=== PATIENT | female | born 1960 | race Caucasian/White ===

== ENCOUNTER 2022-01-01 13:05 | Outpatient (CLI) | payer OTHER, SELFPAY ==
--- NOTE | 2022-01-01 13:19 | MM_ITS ---
WS: [id number] BILATERAL 3D TOMOSYNTHESIS DIGITAL SCREENING MAMMOGRAPHY WITH CAD CLINICAL INFORMATION: SCREENING HISTORY: Screening mammogram. Breast soreness COMPARISON: TECHNIQUE: Bilateral CC and MLO views. FINDINGS: Scattered fibroglandular densities bilaterally. Punctate and dystrophic calcifications are stable. No suspicious focal mass, asymmetry, calcifications, or architectural distortion. No evidence of malign surinder. MM/[place] [id number] IMPRESSION: BI-RADS: 2-Benign FOLLOW UP: 1 Year Follow-up Recommend return to annual screening mammography.
== END 2022-01-01 13:06 | disposition home or self-care (01) ==
LOC: RAD 13:08
PROVIDERS: PCP Internal Medicine; Visit Provider Internal Medicine
DX: Z12.31 Encounter for screening mammogram for malignant neoplasm of breast (principal)
CPT/HCPCS: 77063; 77067

== ENCOUNTER 2023-10-12 09:51 | Outpatient (CLI) | payer OTHER, SELFPAY ==
--- NOTE | 2023-10-12 09:58 | XR_ITS ---
WS: [id number] XR chest 2V* [id number] REASON FOR EXAM: CHEST WALL ANTERIOR PAIN/COUGH FINDINGS: Moderate tortuosity and ectasia of the thoracic aorta. Heart at the upper limits of normal. Presumed large calcified azygos lymph node. Additional calcified granulomas disease in both hilar and perihila r regions. No acute pulmonary parenchymal or pleural abnormality. Mild dextroscoliosis of the thoracic spine with moderate degenerative spondylosis in the lower thorac ic spine. XR/XR chest 2V* [id number] IMPRESSION: No acute chest abnormality.
== END 2023-10-12 09:52 | disposition home or self-care (01) ==
LOC: RAD 09:53
PROVIDERS: PCP Internal Medicine; Visit Provider Nurse Practitioner Family
DX: R07.89 Other chest pain (principal); R05.8 Other specified cough; I77.810 Thoracic aortic ectasia; I89.8 Other specified noninfective disorders of lymphatic vessels and lymph nodes; M41.84 Other forms of scoliosis, thoracic region; M47.814 Spondylosis without myelopathy or radiculopathy, thoracic region
CPT/HCPCS: 71046

== ENCOUNTER 2024-06-08 20:13 | Observation (INO) | payer OTHER, SELFPAY ==
[2024-06-08 20:18] VITALS: BP 228/103; PULSE 99; RESP 18; TEMP 35.7; O2SAT 98; BMI 35.5
--- NOTE | 2024-06-08 20:26 | CTR_ITS ---
PROCEDURE INFORMATION: Exam: CT Head Without Contrast Exam date and time: 06/08/2024 8:38 PM Age: 64 years old Clinical indication: Stroke-like symptoms; Other: Right sided weakness numbness/paresthesia; Additional info: Symptoms of acute stroke TECHNIQUE: Imaging protocol: Computed tomography of the head without contrast. Radiation optimization: All CT scans at this facility use at least one of these dose optimization techniques: automated exposure control; mA and/or kV adjustment per patient size (includes targeted exams where dose is matched to clinical indication); or iterative reconstruction. Other technique: STROKE PROTOCOL was implemented. COMPARISON: No relevant prior studies available. RADIATION DOSE METRICS: Total DLP (mGy-cm): 1075.48 FINDINGS: Brain: No acute infarct. No hemorrhage. Unremarkable white matter for age. No midline shift. Cerebral ventricles: No ventriculomegaly. Paranasal sinuses: There are frothy secretions in the left sphenoid sinus without air-fluid level. Probable bone island in the sphenoid body measuring 8 mm. Mastoid air cells: No significant inflammation. Bones: See Paranasal sinuses finding. Soft tissues: Unremarkable. CT/CT head thrombolytic [id number] IMPRESSION: No acute intracranial abnormality. ASSESSMENT: ASPECTS ([place] Stroke Program Early CT Score) is 10.
--- NOTE | 2024-06-08 20:26 | CTR_ITS ---
PROCEDURE INFORMATION: Exam: CTA Head With Contrast, Arteriography Exam date and time: 06/08/2024 8:46 PM Age: 64 years old Clinical indication: Stroke-like symptoms; Dizziness/giddiness and other: Gait instability; Additional info: Multiple episodes of dizziness with gait instability through out the day. Last known well time of 0930 hours. TECHNIQUE: Imaging protocol: Computed tomographic angiography of the head with contrast. Exam focused on the arteries. 3D rendering (Not supervised by radiologist): MIP and/or 3D reconstructed images were created by the technologist. Radiation optimization: All CT scans at this facility use at least one of these dose optimization techniques: automated exposure control; mA and/or kV adjustment per patient size (includes targeted exams where dose is matched to clinical indication); or iterative reconstruction. Contrast material: OMNI 350; Contrast volume: 100 ml; Contrast route: INTRAVENOUS (IV); COMPARISON: CT head thrombolytic [id number] 06/08/2024 8:38 PM RADIATION DOSE METRICS: Total DLP (mGy-cm): 435.37 FINDINGS: ANTERIOR CIRCULATION: Right internal carotid artery: Intracranial segment is patent with no significant stenosis. No aneurysm. Right middle cerebral artery: No occlusion or significant stenosis. No aneurysm. Right anterior cerebral artery: No occlusion or significant stenosis. No aneurysm. Left internal carotid artery: Intracranial segment is patent with no significant stenosis. No aneurysm. Left middle cerebral artery: No occlusion or significant stenosis. No aneurysm. Left anterior cerebral artery: No occlusion or significant stenosis. No aneurysm. POSTERIOR CIRCULATION: Right vertebral artery: No occlusion or significant stenosis. No aneurysm. Left vertebral artery: No occlusion or significant stenosis. No aneurysm. Basilar artery: No occlusion or significant stenosis. No aneurysm. Right posterior cerebral artery: The right [employer]ION[employer] OFFICE COORDINATOR has mild stenosis in the P1 segment. Left posterior cerebral artery: There is moderate stenosis of the left REGIONAL OFFICE COORDINATOR in the P1 segment. Brain: No definite mass, mass effect, or midline shift. Cerebral ventricles: No ventriculomegaly. Salivary glands: Possible left submandibular duct stone measuring 5 mm. Bones/joints: No acute fracture. Soft tissues: Unremarkable. PROCEDURE INFORMATION: Exam: CTA Neck With Contrast Exam date and time: 06/08/2024 8:46 PM Age: 64 years old Clinical indication: Stroke-like symptoms; Dizziness/giddiness and other: Gait instability; Additional info: Multiple episodes of dizziness with gait instability through out the day. Last known well time of 0930 hours. TECHNIQUE: Imaging protocol: Computed tomographic angiography of the neck with contrast. Exam focused on the cervical segments of the vasculature. 3D rendering (Not supervised by radiologist): MIP and/or 3D reconstructed images were created by the technologist. Radiation optimization: All CT scans at this facility use at least one of these dose optimization techniques: automated exposure control; mA and/or kV adjustment per patient size (includes targeted exams where dose is matched to clinical indication); or iterative reconstruction. Contrast material: OMNI 350; Contrast volume: 100 ml; Contrast route: INTRAVENOUS (IV); COMPARISON: CT head thrombolytic [id number] 06/08/2024 8:38 PM RADIATION DOSE METRICS: Total DLP (mGy-cm): 435.37 FINDINGS: Right common carotid artery: No stenosis. No dissection or occlusion. Right internal carotid artery: No stenosis of the extracranial segment. No dissection or occlusion. Right external carotid artery: No visible occlusion. Left common carotid artery: No stenosis. No dissection or occlusion. Left internal carotid artery: No stenosis of the extracranial segment. No dissection or occlusion. Left external carotid artery: No visible occlusion. Right vertebral artery: No stenosis. No dissection or occlusion. Left vertebral artery: No stenosis. No dissection or occlusion. Thyroid: Heterogeneous thyroid with calcified nodule in the left measuring 8 mm. Soft tissues: No significant soft tissue swelling. Bones/joints: Multilevel spinal degenerative changes. CT/CT angio headneck* [id number] IMPRESSION: No acute large vessel occlusion identified. IMPRESSION: No occlusion or significant stenosis. COMMENTS: Consistent with the [employer]'s Incidental Findings Committee white paper (J Am Danial Radiol 2015): In patients aged 35 years and older with an incidental thyroid nodule equal to or greater than 1.[address], MRI or extrathyroidal US, further evaluation with dedicated thyroid US is recommended for patients with normal life expectancy and without comorbidities. For smaller nodules without suspicious features, no further evaluation or follow up is recommended. REFERENCES: NASCET CRITERIA. The degree of stenosis in the cervical segment of the internal carotid artery is based on NASCET criteria. Normal is no stenosis. Mild is less than 50% stenosis. Moderate is 50-69% stenosis. Severe is 70% to 99% stenosis. Total occlusion is no detectable patent lumen.
--- NOTE | 2024-06-08 20:26 | ECG_ITS ---
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 Measurements Intervals Almond Rate: 85 P: 60 WY: 146 QRS: -17 QRSD: 101 T: 63 QT: 399 QTc: 476 Interpretive Statements SINUS RHYTHM Compared to ECG 07/10/2016 09:01:35 No significant changes Electronically Signed On 06-10-2024 07:43:08 CDT by Luis Alberto Bobby M.D. [email or web address]
[2024-06-08 20:27] LABS: Glucose Point of Care 333 mg/dL (70-110)
[2024-06-08] MEDS: iohexol 350 mg/mL 500 mL Btl (per mL) IV (20:53)
[2024-06-08 21:00] LABS: Basophils % 0.5 %; Eosinophils # 0.1 10^3/uL (0.0-0.8); Eosinophils % 2.5 %; Hematocrit 40.5 % (36-47); Lymphocytes # 1.6 10^3/uL (0.8-4.8); Lymphocytes % 28.2 %; Mean Corpuscular HGB Conc 32.6 g/dL (30-55); Mean Corpuscular Hemoglobin 28.8 pg (27-33); Mean Corpuscular Volume 88.2 fl (85-98); Mean Platelet Volume 11.1 fL (7.4-10.4); Monocytes # 0.5 10^3/uL (0.2-0.9); Neutrophils % 60.6 %; Nucleated Red Blood Cells % 0 %; Platelet Count 161 10^3/cmm (157-399); Red Blood Count 4.59 10^6/uL (3.85-5.65); Red Cell Distribution Width 13.1 % (12.1-15.1); White Blood Count 5.61 10^3/uL (3.29-11.43)
[2024-06-08] MEDS: labetalol 5 mg/mL SDV 20mL 10 MG IVP (21:01)
[2024-06-08] MEDS: sodium chloride 0.9% 1,000 ML 999 ML IV (21:01)
[2024-06-08 21:13] LABS: INR 0.85 (0.8-1.2); Partial Thromboplastin Time 28.7 SECONDS (23.9-36.7)
[2024-06-08 21:21] LABS: Alanine Aminotransferase 22 U/L (0-33); Alkaline Phosphatase 115 U/L (35-105); Anion Gap 17.1 (5-19); Aspartate Amino Transferase 25 U/L (0-32); Blood Urea Nitrogen 24 mg/dL (8-23); Calcium 9.4 mg/dL (8.5-10.5); Carbon Dioxide 24 mmol/L (22-29); Chloride 102 mmol/L (98-107); Creatinine Clr Calc Pharmacy 67.7367; Globulin 3.3 g/dL (1.3-4.6); Glomerular Filtration Rate 55.8 mL/min (90-130); Glucose 342 mg/dL (65-115); Osmolality Calculated 306 mOsm/kg (285-295); Potassium 4.1 mmol/L (3.5-5.1); Sodium 139 mmol/L (136-145); Total Bilirubin 0.5 mg/dL (0.15-1.2); Total Protein 7.3 g/dL (6.6-8.7)
[2024-06-08 21:26] LABS: Alcohol Level < 10 mg/dL (0-10)
[2024-06-08 22:10] LABS: Amphetamines Screen Urine Negative (Negative); Barbiturates Screen Urine Negative (Negative); Benzodiazepines Screen Urine Negative (Negative); Cocaine Screen Urine Negative (Negative); Opiate Screen Urine Negative (Negative); PCP Screen Urine Negative (Negative); THC Screen Urine Negative (Negative)
[2024-06-08] MEDS: LORazepam 2 mg/mL INJ 1 mL 0.5 MG IVP (22:10)
[2024-06-08 22:11] LABS: Bacteria Urine None Seen /hpf; Squamous Epithelial Cell Urine 0-5 /hpf (0-5); WBC Urine 0-5 /hpf (0-5)
[2024-06-08 22:18] LABS: Add Urine Microscopic? YES; Bilirubin Urine Negative (Negative); Blood Urine Trace (Negative); Glucose Urine UA 2+ (Normal); Ketones Urine Negative (Negative); Leukocyte Esterase Urine Negative (Negative); Nitrate Urine Negative (Negative); Protein Urine 1+ (Negative); Specific Gravity, Urine 1.028 (1.005-1.030); Urine Appearance Clear (CLEAR); Urine Color Yellow (Yellow); Urobilinogen Urine 0.2 mg/dL (Negative); pH Urine 7.5 (5-7)
[2024-06-08 22:38] LABS: Influenza A NEGATIVE (Negative); Influenza B NEGATIVE (Negative); Respiratory Syncytial Virus Ce NEGATIVE (Negative); SARS-CoV-2 PCR NEGATIVE (Negative)
--- NOTE | 2024-06-08 23:23 | P.HP_ITS ---
Providers/Chief Complaint 2 Chief Complaint: sudden dizzy this am. 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 brought her in. Code stroke was called, she was out of TNKase window she did not have any stroke related features. She was dizzy with some ataxia. CT head, CTA head and neck unremarkable. At the time of evaluation patient is hemodynamically stable, complaining of nausea. Patient is stating that she had couple of episode of vomiting today as well with chest pain. Patient is stating that she has been experiencing chest pain for last few weeks which would last sometimes for an hour, it would radiate towards her arms bilaterally associated with shortness of breath on exertion. No history of MA CHF or coronary disease. As per the ER: Lazaro's maneuver was negative Review of Systems 2 Const: Denies: fever(s) Eyes: Denies: change in vision ENMT: Denies: throat pain Card: Reports: chest pain Resp: Reports: dyspnea GI: Reports: nausea and vomiting Medications/Allergies Home Medications ?Medication ?Instructions ?Recorded ?Confirmed ?Last Taken ?Type glipizide 5 mg tablet 5 mg PO BID 07/25/22 4 Unknown History levothyroxine 88 mcg capsule 88 mcg PO DAILY 07/25/22 03/11/24 Unknown History metoprolol tartrate 50 mg tablet 50 mg PO BID 07/25/22 03/11/24 Unknown History losartan 50 mg tablet 50 mg PO DAILY #30 tabs 02/2003/11/24 Unknown Rx metformin 1,000 mg tablet 1,000 mg PO BID #120 tabs Unknown Rx Allergies Allergy/AdvReac Type Severity Reaction Status Date / Time No Known Allergies Allergy Verified 06/08/24 20:19 PFSH Acute 2 PFSH: Medical History Poorly controlled diabetes mellitus Social History Smoking and tobacco/nicotine status: never used tobacco/nicotine Vitals/I&O/Wt Last Vital Signs Temp 96.3 F L 06/08/24 20:18 Pulse 99 06/08/24 20:18 Resp 18 06/08/24 20:18 BP 228/103 06/08/24 20:18 Pulse Ox 98 06/08/24 20:18 O2 Del Method Room Air 06/08/24 20:18 06/08/24 06/08/24 06/09/24 14:59 22:59 06:59 Intake Total 0 / 0 Balance 0 / 0 Weight last 48 hrs Weight 99.79 kg Physical Exam 2 Narrative: Awake and alert GCS 15 No active focal deficit Complaining of dizziness Dizziness on changing head position Mild ataxia No active focal deficit noted S1, S2 Hypertensive Currently on room air Awake and alert AOx4 Abdomen nondistended Data 06/08/24 20:50 06/08/24 20:50 A&P Assessment and plan (1) Hypertension: (2) Poorly controlled diabetes mellitus: (3) CVA (cerebral vascular accident): Qualifiers: CVA mechanism: other Qualified Code(s): I63.89 - Other cerebral infarction (4) Balance problem: (5) Unstable angina: Plan Dizziness Patient describes dizziness as lightheadedness Lazaro's maneuver negative Rule out stroke CTA head and neck CT head unremarkable Will request head MRI Patient is aware that she has to remove her nose pain Will start aspirin along atorvastatin Check B12, TSH Ataxia could be related to poorly controlled diabetes and peripheral neuropathy Unstable angina: Patient has been experiencing chest pain with exertion: Requested echo, serial troponin with EKG Continue aspirin with statins Patient is endorsing family history of MA, father age 57 secondary to MA No active chest pain Request D-dimer as well Poorly controlled diabetic: Patient only takes oral antihyperglycemic agent, her A1c is around 9.7 if she will need insulin at the time of discharge Start sliding scale and Lantus Restless leg syndrome: Check iron studies Hypertension: Permissive hypertension for now: Takes losartan at home Full code Consistent carb diet DVT prophylaxis heparin Requested telemetry PDMP PDMP Reviewed: Not Reviewed Attestations 2 Medical Necessity Statement*: Anticipating discharge within 24 to 48 hours after workup for CVA Diagnoses Hypertension I10 Poorly controlled diabetes mellitus E11.65 CVA (cerebral vascular accident) I63.89 CVA mechanism: other Balance problem R26.89 Unstable angina I20.0
--- NOTE | 2024-06-08 23:34 | ED_ITS ---
HPI - Neuro Symptoms/Deficit 2 General: Chief Complaint: Neuro Symptoms/Deficit Stated Complaint: sudden dizzy this am. all day right side weak Time Seen by Provider: 06/08/24 20:18 Source: patient and family Mode of arrival: wheelchair Limitations: no limitations History of Present Illness: Reports around 930 this morning 70 beats are becoming dizzy. Patient declines to be room spinning but also declines after being lightheaded. Just reports that her balance is off. She feels like she is walking like a toddler. It has been all day and she feels like she is a little more weak on the right side though on bedside exam it was fairly equal. Nonetheless there was concern for possible CVA so stroke alert was performed and CTA was done. Patient declines any fever. Has had some nausea. Did vomit once here in the ER. Related Data Home Medications ?Medication ?Instructions ?Recorded ?Confirmed glipizide 5 mg tablet 5 mg PO BID 07/25/22 4 levothyroxine 88 mcg capsule 88 mcg PO DAILY 07/25/22 03/11/24 metoprolol tartrate 50 mg tablet 50 mg PO BID 07/25/22 03/11/24 Previous Rx's ?Medication ?Instructions ?Recorded losartan 50 mg tablet 50 mg PO DAILY #30 tabs 02/20 04/14 metformin 1,000 mg tablet 1,000 mg PO BID #120 tabs Allergies Allergy/AdvReac Type Severity Reaction Status Date / Time No Known Allergies Allergy Verified 06/08/24 20:19 Review of Systems 2 General: Reports: 10 or more systems reviewed and unremarkable except in HPI and below PFSH ED 2 PFSH: Medical History Poorly controlled diabetes mellitus Social History Smoking and tobacco/nicotine status: never used tobacco/nicotine NIH stroke score 2 NIHSS: Level Of Consciousness - 1a: 0 Level Of Consciousness Questions - 1b: Both Correct Level Of Consciousness Commands - 1c: Both Correct Best Gaze - 2: Normal Visual Perez - 3: No Visual Loss Facial Palsy - 4: N ormal Motor Arm Right - 5: No Drift Motor Arm Left - 5: No Drift Motor Leg Right - 6: No Drift Motor Leg Left - 6: No Drift Limb Ataxia - 7: P resent In One Limb (Right leg) Sensory - 8: Normal Best Language - 9: No Aphasia Dysarthia - 10: Normal Extinction And Inattention - 11: 0 Score: Total Score: 1 Physical Exam 2 Const: COMMON NORMALS: no acute distress, average body habitus, patient oriented x3, healthy appearing, alert and well nourished GENERAL APPEARANCE: well kempt and well developed ORIENTATION/CONSCIOUSNESS: Yes oriented to person, Yes oriented to place and Yes oriented to time HENMT: COMMON NORMALS: normocephalic, atraumatic, external ears normal and moist oral mucous membranes HEAD & SCALP: normocephalic and atraumatic E XTERNAL EAR: Yes external ears normal Eye: COMMON NORMALS: Equal, round and reactive pupils present, EOMs intact bilaterally and conjunctivae normal CONJUNCTIVA: Yes conjunctivae normal P UPIL: Yes Equal, round and reactive pupils present Neck/C-Spine: COMMON NORMALS: full ROM, no lymphadenopathy and supple Chest: CHEST: Yes Symmetrical chest wall rise and No Surgical scars present (Chest) Resp: COMMON NORMALS: normal respiratory effort, No retractions, No use of accessory muscles and clear to auscultation bilaterally AUSCULTATION: clear to auscultation bilaterally Cardio: COMMON NORMALS: regular rhythm, S1 normal heart sound present, S2 normal heart sound present, No gallops present (Cardio), No clicks present (Cardio), No murmurs present (Cardio) and No rub (Cardio) JUGULAR VENOUS DISTENTION: no JVD RATE: tachycardic RHYTHM: regular rhythm HEART SOUNDS: S1 normal heart sound present, S2 normal heart sound present and no murmurs PERIPHERAL PULSES: other (Radial pulses 2+ and symmetric) GI: COMMON NORMALS: Soft to palpation, non-tender and no masses INSPECTION: No abdominal distension PALPATION: Yes Soft to palpation, No Guarding due to palpation present (GI) and No Rebound tenderness present : COMMON NORMALS: Yes no CVA tenderness BLADDER/KIDNEY EXAM: Yes no CVA tenderness Back/Pelvis: COMMON NORMALS: no CVA tenderness Extremity: COMMON NORMALS: normal to inspection, full ROM, capillary refill normal and no clubbing, cyanosis or edema Neuro: COMMON NORMALS: patient oriented x3, CN's II-XII intact bilaterally, moves all extremities, no focal motor deficits and no sensory deficits noted; negative for gait normal SENSORIUM/ORIENTATION: Yes alert, Yes oriented to person, Yes oriented to place and Yes oriented to time GAIT: Yes Staggering gait present Psych: APPEARANCE: Yes well kempt Skin: COMMON NORMALS: no rashes or lesions noted, no wounds, turgor normal and no jaundice GENERAL SKIN EXAM: no rashes or lesions noted and turgor normal Course 2 Reevaluation(s): Reevaluation #1: On reexamination. Patient has now thrown up once and is complaining of restless legs. Restless legs are chronic. She is not treated with any medications. She is unaware if they have ever checked her iron levels. Vital Signs: Vital signs: Vital Signs Temperature 96.3 F L 06/08/24 20:18 Pulse Rate 99 06/08/24 20:18 Respiratory Rate 18 06/08/24 20:18 Blood Pressure 228/103 06/08/24 20:18 Pulse Oximetry 98 06/08/24 20:18 Oxygen Delivery Me thod Room Air 06/08/24 20:18 MDM - Neuro Symptoms/Deficit Medical Decision Making Patient having Diffley bouncing, [address] are unremarkable including CTA. Personally reviewed and verified by radiology. Discussed the case with Dr. Vidal earlier in the shift. Unsure if patient is anxious but along to the bathroom she is only has a stumbling gait and appears to have balance issues. Denies any weakness. Patient will be admitted to the hospital for potential CVA. Blood pressure and heart rate has improved with treatments. Flu COVID RSV negative. Ears unremarkable. Patient still somewhat ataxic or off balance. Will admit to the hospitalist, neurology consult in AM. Medical Records I reviewed the patient's medical records. Lab Data I reviewed the patient's lab results. 06/08/24 20:50 06/08/24 20:[address] 06/08/24:26 IMPRESSION: No acute intracranial abnormality. ASSESSMENT: ASPECTS ([place] Stroke Program Early CT Score) is 10. ADDENDUM: 06/08/242101 Findings were discussed with MISSAEL Elias at 06/08/2024 9:01 PM CDT. Head/Neck CTA 06/08/24: IMPRESSION: No acute large vessel occlusion identified. IMPRESSION: No occlusion or significant stenosis. COMMENTS: Consistent with the [employer]'s Incidental Findings Committee white paper (J Am Danial Radiol 2015): In patients aged 35 years and older with an incidental thyroid nodule equal to or greater than 1.[address], MRI or extrathyroidal US, further evaluation with dedicated thyroid US is recommended for patients with normal life expectancy and without comorbidities. For smaller nodules without suspicious features, no further evaluation or follow up is recommended. REFERENCES: NASCET CRITERIA. The degree of stenosis in the cervical segment of the internal carotid artery is based on NASCET criteria. Normal is no stenosis. Mild is less than 50% stenosis. Moderate is 50-69% stenosis. Severe is 70% to 99% stenosis. Total occlusion is no detectable patent lumen. ADDENDUM: 06/08/242126 Findings were discussed with MISSAEL Elias at 06/08/2024 9:22 PM CDT. Laboratory Results WBC 5.61 10^3/uL (3.29-11.43) 06/08/24 20:50 RBC 4.59 10^6/uL (3.85-5.65) 06/08/24 20:50 Hgb 13.20 g/dL (11.27-16.99) 06/08/24 20:50 Hct 40.5 % (36-47) 06/08/24 20:50 MCV 88.2 fl (85-98) 06/08/24 20:50 MCH 28.8 pg (27-33) 06/08/24 20:50 MCHC 32.6 g/dL (30-55) 06/08/24 20:50 RDW 13.1 % (12.1-15.1) 06/08/24 20:50 Plt Count 161 10^3/cmm (157-399) 06/08/24 20:50 MPV 11.1 fL (7.4-10.4) H 06/08/24 20:50 Neut % (Auto) 60.6 % 06/08/24 20:50 Lymph % (Auto) 28.2 % 06/08/24 20:50 [place] % (Auto) 8.0 % 06/08/24 20:50 Eos % (Auto) 2.5 % 06/08/24 20:50 Baso % (Auto) 0.5 % 06/08/24 20:50 Neut # (Auto) 3.40 10^3/uL (1.8-7.7) 06/08/24 20:50 Lymph # (Auto) 1.6 10^3/uL (0.8-4.8) 06/08/24 20:50 [place] # (Auto) 0.5 10^3/uL (0.2-0.9) 06/08/24 20:50 Eos # (Auto) 0.1 10^3/uL (0.0-0.8) 06/08/24 20:50 Baso # (Auto) 0.0 10^3/uL (0.0-0.1) 06/08/24:50 Nucleated RBC % (auto) 0 % 06/08/24:50 Nucleated RBCs # 0.0 /100WBC 06/08/24 20:50 PT 12.20 SECONDS (12.1-14.9) 06/08/24 20:50 INR 0.85 (0.8-1.2) 06/08/24 20:50 APTT 28.7 SECONDS (23.9-36.7) 06/08/24 20:50 Sodium 139 mmol/L (136-145) 06/08/24:50 Potassium 4.1 mmol/L (3.5-5.1) 06/08/24 20:50 Chloride 102 mmol/L (98-107) 06/08/24 20:50 Carbon Dioxide 24 mmol/L (22-29) 06/08/24 20:50 Anion Gap 17.1 (5-19) 06/08/24 20:50 BUN 24 mg/dL (8-23) H 06/08/24 20:50 Creatinine 1.0 mg/dL (0.5-0.9) H 06/08/24 20:50 GFR Calculation 55.8 mL/min (90-130) L 06/08/24 20:50 Glucose 342 mg/dL (65-115) H 06/08/24 20:50 POC Glucose 333 mg/dL (70-110) H 06/08/24 20:22 Calculated Osmolality 306 mOsm/kg (285-295) H 06/08/24 20:50 Calcium 9.4 mg/dL (8.5-10.5) 06/08/24 20:50 Total Bilirubin 0.5 mg/dL (0.15-1.2) 06/08/24 20:50 AST 25 U/L (0-32) 06/08/24 20:50 ALT 22 U/L (0-33) 06/08/24 20:50 Alkaline Phosphatase 115 U/L (35-105) H 06/08/24 20:50 Total Protein 7.3 g/dL (6.6-8.7) 06/08/24 20:50 Albumin 4.0 g/dL (3.5-5.2) 06/08/24 20:50 Globulin 3.3 g/dL (1.3-4.6) 06/08/24 20:50 Urine Color Yellow (Yellow) 06/08/24 21:54 Urine Appearance Clear (CLEAR) 06/08/24 21:54 Urine pH 7.5 (5-7) 06/08/24 21:54 Ur Specific [place] 1.028 (1.005-1.030) 06/08/24 21:54 Urine Protein 1+ (Negative) A 06/08/24 21:54 Urine Glucose (UA) 2+ (Normal) H 06/08/24 21:54 Urine Ketones Negative (Negative) 06/08/24 21:54 Urine Blood Trace (Negative) A 06/08/24 21:54 Urine Nitrate Negative (Negative) 06/08/24 21:54 Urine Bilirubin Negative (Negative) 06/08/24 21:54 Urine Urobilinogen 0.2 mg/dL (Negative) 06/08/24 21:54 Ur Leukocyte Esterase Negative (Negative) 06/08/24 21:54 Urine RBC 3-5 /hpf (0-2) 06/08/24 21:54 Urine WBC 0-5 /hpf (0-5) 06/08/24 21:54 Ur Squamous Epith Cells 0-5 /hpf (0-5) 06/08/24 21:54 Amorphous Sediment Not Reportable 06/08/24 21:54 Urine Bacteria None seen /hpf (NONE) 06/08/24 21:54 Hyaline Casts 0.40 /lpf 06/08/24 21:54 Urine Opiates Screen Negative ng/mL (Negative) 06/08/24 21:54 Ur Barbiturates Screen Negative ng/mL (Negative) 06/08/24 21:54 Ur Phencyclidine Scrn Negative ng/mL (Negative) 06/08/24 21:54 Ur Amphetamines Screen Negative ng/mL (Negative) 06/08/24 21:54 U Benzodiazepines Scrn Negative ng/mL (Negative) 06/08/24 21:54 Urine Cocaine Screen Negative ng/mL (Negative) 06/08/24 21:54 U Marijuana (THC) Screen Negative ng/mL (Negative) 06/08/24 21:54 Ethyl Alcohol < 10 mg/dL (0-10) 06/08/24 20:50 Influenza A (PCR) Negative (Negative) 06/08/24 21:54 Influenza Type B (PCR) Negative (Negative) 06/08/24 21:54 RSV (PCR) Negative (Negative) 06/08/24 21:54 SARS-CoV-2 (PCR) Negative (Negative) 06/08/24 21:54 All radiology interpretation(s) finalized by discharge Discharge Plan Discharge Patient Disposition: Placed in Observation Admit Provider: Shari Yang Clinical Impression: Balance problem, CVA (cerebral vascular accident), Poorly controlled diabetes mellitus Condition: Stable Coding Level of Care Code ED Product Communications Manager for Valery Rosario
[2024-06-08 23:46] LABS: Chol HDL Ratio 4.04 mg/dL (0.0-4.40); Cholesterol 198 mg/dL (0-200); HDL Cholesterol 49 mg/dL (60-100); LDL Cholesterol Calculated 113 mg/dL (50-129); LDL HDL Ratio 2.31 RATIO (0.00-3.22); Triglycerides 181 mg/dL (0-150)
[2024-06-08] MEDS: ondansetron 2 mg/ML SDV 2 mL 4 MG IVP (23:46)
[2024-06-08 23:54] VITALS: BP 169/83; PULSE 98; RESP 20; O2SAT 100
[2024-06-08 23:58] LABS: Ferritin 41 ng/mL (15-150); Total Iron Binding Capacity 290 mcg/dl; Unsaturated Iron Binding 252 ug/dL (112-347)
[2024-06-09] VITALS (11 sets, daily range): BP systolic 129–171; BP diastolic 68–97; PULSE 73–96; RESP 15–18; TEMP 36.6–36.8; O2SAT 95–97; BMI 35.2
--- NOTE | 2024-06-09 00:06 | USCV_ITS ---
Roxanna Olivera Age: 64 Gender: F : 1960 Exam Date: 06/09/2024 00:43 Ordering Phys: Shari Yang MD Technologist: AMAN [place] [facility] [place]: cva, dizziness, RIGHT hemiparesis BP: 228 / 103 HR: 90 Rhythm: Sinus Technical Quality: Adequate MEASUREMENTS (Male / Female) Normal Values 2D ECHO LV Diastolic Diameter PLAX 4.8 cm 4.2 - 5.9 / 3.9 - 5.3 cm IVS Diastolic Thickness 1.6 cm 0.6 - 1.0 / 0.6 - 0.9 cm IVS Systolic Thickness 2.0 cm LVPW Diastolic Thickness 1.4 cm 0.6 - 1.0 / 0.6 - 0.9 cm LVPW Systolic Thickness 2.2 cm LVOT Diameter 2.0 cm LV Ejection Fraction 2D Teich 67.8 % LV Ejection Fraction MOD 4C 57.8 % LV Ejection Fraction MOD 2C 57.8 % LV Ejection Fraction 2C AL 59.3 % LA Diameter 3.4 cm LA Sys Volume AL 75.0 cm cubed LA Sys Volume Index AL 34.2 cm cubed/m squared Aorta at Sinotubular Diameter 2.6 cm IVC Diameter 1.4 cm M-MODE LA Ao Ratio MM 1.5 AV Cusp Separation MM 2.0 cm DOPPLER AV Peak Velocity 143.0 cm/s LVOT Peak Velocity 93.0 cm/s AV Area Cont Eq vti 2.5 cm squared AV Area Cont Eq pk 2.0 cm squared MV Peak Velocity 134.0 cm/s MV Area PHT 3.3 cm squared Mitral E to A Ratio 0.8 TV Peak E Velocity 77.0 cm/s PV Peak Velocity 125.0 cm/s FINDINGS Left Ventricle Normal left ventricular size, systolic function and wall thickness, with no regional wall motion abnormalities. Left ventricular ejection fraction is estimated at 60 %. Grade I/IV diastolic dysfunction (abnormal relaxation filling pattern), normal to mildly elevated filling pressures. Right Ventricle The right ventricle is normal in size and function. Right Atrium The right atrium is normal in size. Left Atrium Moderately increased left atrial size. Mitral Valve Moderately thickened mitral valve. No mitral valve stenosis. Mild-moderate mitral valve regurgitation. Aortic Valve Moderate aortic valve calcification. No aortic valve stenosis. Mild aortic valve regurgitation. Tricuspid Valve Mild tricuspid valve regurgitation. Pulmonic Valve Structurally normal pulmonic valve without significant stenosis. There is no pulmonic regurgitation. Pericardium Normal pericardium without effusion. Aorta Normal ascending aorta dimension. IVC The inferior vena cava appears normal. CONCLUSIONS Normal left ventricular size, systolic function and wall thickness, with no regional wall motion abnormalities. Left ventricular ejection fraction is estimated at 60 %. Grade I/IV diastolic dysfunction (abnormal relaxation filling pattern), normal to mildly elevated filling pressures. Moderately increased left atrial size. Moderately thickened mitral valve. No mitral valve stenosis. Mild-moderate mitral valve regurgitation. Mild tricuspid valve regurgitation. There is no pericardial effusion. Right atrial pressure is around 5 mm of mercury. Shari Knox MD (Electronically Signed) Final Date: 09 June 2024 07:58 S
--- NOTE | 2024-06-09 00:10 | ECG_ITS ---
[facility] Date: 2024-06-09 Pat Name: Roxanna Olivera Department: Room: 254 Gender: Female Flue Blower: : 1960 Requested By: Shari Yang Order Number: [id number] Maite MD: Luis Alberto Bobby M.D. Measurements Intervals [place] Rate: 92 P: 44 CO: 150 QRS: -28 QRSD: 95 T: 52 QT: 394 QTc: 489 Interpretive Statements SINUS RHYTHM WITH OCCASIONAL SUPRAVENTRICULAR PREMATURE COMPLEXES BORDERLINE LEFT AXIS DEVIATION [QRS AXIS < -20] MINIMAL ST DEPRESSION [0.025+ mV ST DEPRESSION] Compared to ECG 06/08/2024 21:00:58 ST (T wave) deviation now present Electronically Signed On 06-10-2024 07:42:47 CDT by Luis Alberto Bobby M.D. [email or web address]
[2024-06-09 00:14] LABS: Vitamin B12 194 pg/mL (232-1245)
[2024-06-09 00:18] LABS: Estmated Average Glucose 232; Hemoglobin A1C 9.7 % (4.0-6.0)
[2024-06-09 00:22] LABS: Folate Level > 20.0 ng/mL (4.8-37.3)
[2024-06-09 00:26] LABS: D Dimer 0.42 ug/mLFEU (0-0.59)
[2024-06-09] MEDS: insulin lispro 100 unit/1 mL SUBCUT ×5 (00:28→21:41)
[2024-06-09 00:41] LABS: Thyroid Stimulating Hormone 5.07 uIU/mL (0.27-4.20)
[2024-06-09] MEDS: insulin glargine 100 units/1 mL 20 UNIT SUBCUT ×2 (00:50→21:41)
[2024-06-09 00:59] LABS: Iron 38 ug/dL (37-145); Percent Saturation 13.1 % (20-50)
[2024-06-09 01:09] LABS: Troponin(5th) Baseline 13 ng/L (0-10)
[2024-06-09 02:46] LABS: Basophils % 0.6 %; Eosinophils % 0.6 %; Hematocrit 35.8 % (36-47); Lymphocytes # 0.9 10^3/uL (0.8-4.8); Lymphocytes % 18.6 %; Mean Corpuscular HGB Conc 32.4 g/dL (30-55); Mean Corpuscular Hemoglobin 28.9 pg (27-33); Mean Corpuscular Volume 89.3 fl (85-98); Mean Platelet Volume 10.1 fL (7.4-10.4); Monocytes # 0.3 10^3/uL (0.2-0.9); Monocytes % 5.6 %; Neutrophils # 3.72 10^3/uL (1.8-7.7); Neutrophils % 74.4 %; Nucleated Red Blood Cells % 0 %; Platelet Count 140 10^3/cmm (157-399); Red Blood Count 4.01 10^6/uL (3.85-5.65)
--- NOTE | 2024-06-09 02:49 | ECG_ITS ---
[facility] Test Date: 2024-06-09 Pat Name: Roxanna Olivera Department: Room: 254 Gender: Female Clinical Practitioner: : 1960 Requested By: Shari Yang Order Number: [id number] Maite MD: Luis Alberto Bobby M.D. Measurements Intervals [place] Rate: 93 P: 42 NE: 143 QRS: -25 QRSD: 103 T: 61 QT: 382 QTc: 475 Interpretive Statements SINUS RHYTHM BORDERLINE LEFT AXIS DEVIATION [QRS AXIS < -20] NONSPECIFIC ST & T-WAVE ABNORMALITY Compared to ECG 06/09/2024 00:17:36 T-wave abnormality now present ST (T wave) deviation no longer present Electronically Signed On 06-10-2024 07:47:30 CDT by Luis Alberto Bobby M.D. [email or web address]
[2024-06-09 03:08] LABS: Troponin 5 2HR 13.85 ng/L (0-10); Troponin 5 2HR Delta 0.85 ABS# (0-10)
[2024-06-09 03:10] LABS: Anion Gap 15.4 (5-19); Blood Urea Nitrogen 20 mg/dL (8-23); C Reactive Protein 3.3 mg/L (0.0-4.9); Calcium 8.7 mg/dL (8.5-10.5); Carbon Dioxide 24 mmol/L (22-29); Chloride 103 mmol/L (98-107); Creatinine Clr Calc Pharmacy 74.9555; Glucose 385 mg/dL (65-115); Magnesium 1.6 mg/dL (1.7-2.3); Osmolality Calculated 305 mOsm/kg (285-295); Potassium 4.4 mmol/L (3.5-5.1); Sodium 138 mmol/L (136-145)
--- NOTE | 2024-06-09 04:35 | MR_ITS ---
WS: [id number] MRI HEAD WITHOUT CONTRAST TECHNIQUE: Sagittal T1, T2 axial, T2 axial FLAIR, axial and coronal T1 images, axial susceptibility weighted imaging, axial diffusion weighted images, and coronal T2 images were obtained. CLINICAL INFORMATION: cva COMPARISON: CT 06/08/2024 FINDINGS: 6.8 mm focus of restricted diffusion in the LEFT lateral thalamus along the posterior limb LEFT internal capsule compatible with acute ischemia. No other foci of restricted diffusion. Mild small vessel changes. Mild parenchymal volume loss. Normal vascular flow voids at the skull base. No Extra-axial fluid collections. RIGHT mastoid effusion. Paranasal sinuses are well aerated. Normal optic chiasm and pituitary infundibulum. Mild symmetric atrophy temporal lobes and hippocampal formations. No hemosiderin on the susceptibly weighted images. MR/MR head wo con* [id number] IMPRESSION: 1. 6.8 mm focus of restricted diffusion compatible with acute ischemia in the LEFT lateral thalamus/posterior limb LEFT internal capsule. Small amount of ass ociated edema. No other foci of restricted diffusion. Notified Colette Olivo MD at 06/09/2024 11:10 AM.
[2024-06-09] MEDS: levothyroxine 88 mcg Tablet PO (05:50)
[2024-06-09 08:31] LABS: Glucose Point of Care 361 mg/dL (70-110)
--- NOTE | 2024-06-09 08:32 | PC.NURSE ---
campaign coordinator rounds- 0800 gave patient stroke education book.
[2024-06-09] MEDS: atorvastatin 40 mg Tablet 80 MG PO (08:34)
[2024-06-09] MEDS: metoprolol tartrate 50 mg Tablet PO ×2 (08:34→17:19)
[2024-06-09] MEDS: aspirin 81 mg EC Tablet PO (08:34)
[2024-06-09] MEDS: losartan 50 mg Tablet PO (08:34)
[2024-06-09] MEDS: heparin 5,000 unit/mL INJ 1 mL 5000 UNIT SUBCUT ×2 (08:35→21:41)
[2024-06-09] MEDS: cyanocobalamin 1,000 mcg/mL SDV 1000 MCG IM (08:35)
[2024-06-09 11:28] LABS: Glucose Point of Care 286 mg/dL (70-110)
--- NOTE | 2024-06-09 12:52 | P.PN_ITS ---
Subjective 2 Subjective: seen this morning MRI this am shows: Thalamic stroke Vitals/I&O/Wt Last Vital Signs Temp 98.2 F 06/09/24 11:35 Pulse 77 06/09/24 11:35 Resp 16 06/09/24 11:35 BP 162/75 06/09/24 11:35 Pulse Ox 96 06/09/24 11:35 O2 Del Method Room Air 06/09/24 11:35 06/08/24 06/09/24 06/09/24 22:59 06:59 14:59 Intake Total 0 / 0 1000 / 1000 360 / 360 Output Total 400 / 400 Balance 0 / 0 1000 / 1000 -40 / -40 Weight last 48 hrs Weight 101.196 kg Weight 99.019 kg Weight 99.79 kg Physical Exam 2 Narrative: Awake and alert GCS 15 no focal deficit, S1, S2 Currently on room air Awake and alert AOx4 Abdomen nondistended extremities: no edema noted Data 06/09/24 02:29 06/09/24 02:29 A&P Assessment and plan (1) Hypertension: (2) Poorly controlled diabetes mellitus: (3) CVA (cerebral vascular accident): Qualifiers: CVA mechanism: other Qualified Code(s): I63.89 - Other cerebral infarction (4) Balance problem: (5) Unstable angina: Plan Dizziness Patient describes dizziness as lightheadedness Lazaro's maneuver negative Rule out stroke CTA head and neck CT head unremarkable Will request head MRI Patient is aware that she has to remove her nose pain Will start aspirin along atorvastatin Check B12, TSH Ataxia could be related to poorly controlled diabetes and peripheral neuropathy Unstable angina: Patient has been experiencing chest pain with exertion: Requested echo, serial troponin with EKG Continue aspirin with statins Patient is endorsing family history of NE, father age 57 secondary to NE No active chest pain Request D-dimer as well Poorly controlled diabetic: Patient only takes oral antihyperglycemic agent, her A1c is around 9.7 if she will need insulin at the time of discharge Start sliding scale and Lantus Restless leg syndrome: Check iron studies Hypertension: Permissive hypertension for now: Takes losartan at home Full code Consistent carb diet DVT prophylaxis heparin Requested telemetry 06/09/2024 MRI shows :1. 6.8 mm focus of restricted diffusion compatible with acute ischemia in the LEFT lateral thalamus/posterior limb LEFT internal capsule. Small amount of associated edema. No other foci of restricted diffusion. CTA head and neck: No occlusion or significant stenosis. HbA1C: 9.7 continue lantus and ssi check pt/ot dysphagia screen neuro consulted from ER, will await recommendations continue aspirin, plavix statin continue telemetry may need event monitor on dc PDMP PDMP Reviewed: Not Reviewed Attestations 2 Medical Necessity Statement*: stroke workup Diagnoses Hypertension I10 Poorly controlled diabetes mellitus E11.65 CVA (cerebral vascular accident) I63.89 CVA mechanism: other Balance problem R26.89 Unstable angina I20.0
[2024-06-09] MEDS: clopidogrel 75 mg Tablet PO (13:24)
[2024-06-09] MEDS: magnesium sulfate premix 4 GM/100 ML PREMIX IV (13:28)
[2024-06-09 16:23] LABS: Glucose Point of Care 239 mg/dL (70-110)
[2024-06-09 21:01] LABS: Glucose Point of Care 285 mg/dL (70-110)
[2024-06-10 04:00] VITALS: BP 163/79; PULSE 74; RESP 16; TEMP 36.5; O2SAT 97
[2024-06-10 05:31] VITALS: PULSE 77
[2024-06-10 05:53] LABS: Basophils % 0.7 %; Eosinophils # 0.2 10^3/uL (0.0-0.8); Eosinophils % 3.5 %; Hematocrit 38.4 % (36-47); Lymphocytes # 1.3 10^3/uL (0.8-4.8); Lymphocytes % 27.9 %; Mean Corpuscular Hemoglobin 28.7 pg (27-33); Mean Corpuscular Volume 89.7 fl (85-98); Monocytes # 0.4 10^3/uL (0.2-0.9); Monocytes % 7.7 %; Neutrophils # 2.74 10^3/uL (1.8-7.7); Nucleated Red Blood Cells % 0 %; Platelet Count 146 10^3/cmm (157-399); Red Blood Count 4.28 10^6/uL (3.85-5.65); Red Cell Distribution Width 13.2 % (12.1-15.1); White Blood Count 4.56 10^3/uL (3.29-11.43)
[2024-06-10] MEDS: levothyroxine 88 mcg Tablet PO (06:03)
[2024-06-10 06:11] LABS: Anion Gap 12.8 (5-19); Blood Urea Nitrogen 15 mg/dL (8-23); Calcium 8.6 mg/dL (8.5-10.5); Carbon Dioxide 24 mmol/L (22-29); Chloride 104 mmol/L (98-107); Glomerular Filtration Rate 84.2 mL/min (90-130); Glucose 217 mg/dL (65-115); Osmolality Calculated 291 mOsm/kg (285-295); Potassium 3.8 mmol/L (3.5-5.1); Sodium 137 mmol/L (136-145)
[2024-06-10 06:39] LABS: Glucose Point of Care 249 mg/dL (70-110)
[2024-06-10 08:00] VITALS: BP 149/82; PULSE 76; RESP 14; TEMP 36.6; O2SAT 98
[2024-06-10] MEDS: insulin lispro 100 unit/1 mL SUBCUT (08:52)
[2024-06-10] MEDS: metoprolol tartrate 50 mg Tablet PO (08:54)
[2024-06-10] MEDS: aspirin 81 mg EC Tablet PO (08:54)
[2024-06-10] MEDS: clopidogrel 75 mg Tablet PO (08:54)
[2024-06-10] MEDS: atorvastatin 40 mg Tablet 80 MG PO (08:54)
[2024-06-10 08:55] VITALS: BP 163/79
[2024-06-10] MEDS: losartan 50 mg Tablet PO (08:55)
[2024-06-10] MEDS: cyanocobalamin 1,000 mcg/mL SDV 1000 MCG IM (08:55)
[2024-06-10] MEDS: heparin 5,000 unit/mL INJ 1 mL 5000 UNIT SUBCUT (08:55)
[2024-06-10 09:26] VITALS: PULSE 88; RESP 16; O2SAT 94
[2024-06-10 11:51] VITALS: BP 169/83; PULSE 69; RESP 15; TEMP 37; O2SAT 96
--- NOTE | 2024-06-10 12:39 | P.DS_ITS ---
Discharge Providers Date of Admission: 06/09/24 00:06 Date of Discharge: June 10, 2024 Attending Provider at Admission: Shari Yang MD Attending Provider at Discharge: Colette Olivo MD Diagnoses at Discharge Discharge Diagnosis (1) Hypertension: Status: Acute (2) Poorly controlled diabetes mellitus: Status: Acute (3) CVA (cerebral vascular accident): Status: Acute Qualifiers: CVA mechanism: other Qualified Code(s): I63.89 - Other cerebral infarction (4) Balance problem: Status: Acute (5) Chest pain: Status: Acute Reason for Visit Reason for Visit: sudden dizzy this am. all day right side weak Hospital Course Hospital Course Patient was admitted for dizziness and lightheadedness. Lazaro maneuver was negative. MRI head was performed which showed a 6.8 mm focus of restricted diffusion compatible with acute ischemia in the left lateral the most posterior limb left internal capsule. CTA head and neck was negative. A1c 9.7. She was continued on Lantus and sliding scale insulin. Dysphagia screen was normal. She was placed on aspirin and Plavix x 3 weeks including a statin. Event monitor was ordered at discharge. She will follow-up with neurology and primary care doctor as an outpatient. Physical therapy also evaluated patient and made recommendations for her. Physical Exam Narrative: Awake and alert GCS 15 no focal deficit, S1, S2 Currently on room air Awake and alert AOx4 Abdomen nondistended extremities: no edema noted Gait normal. Very very mild right-sided weakness compared to left side almost negligible. Discharge Data Studies Completed and Pending Completed Studies During Hospitalization Category Date Time Status CT angio headneck* [id number] Stat Cat Scan 06/08/24 20:[address] head thrombolytic [id number] Stat Cat Scan 06/08/24 20:26 Completed MR head wo con* [id number] Routine MRI 06/09/24 04:35 Completed CV. echo complete* [id number] Routine Ultrasound 06/09/24 00:06 Completed Radiology Impressions Head CT 06/08/24 20:26 IMPRESSION: No acute intracranial abnormality. ASSESSMENT: ASPECTS ([place] Stroke Program Early CT Score) is 10. ADDENDUM: 06/08/242101 Findings were discussed with UMESH Elias at 06/08/2024 9:01 PM CDT. Head/Neck CTA 06/08/24 20:26 IMPRESSION: No acute large vessel occlusion identified. IMPRESSION: No occlusion or significant stenosis. COMMENTS: Consistent with the [employer]'s Incidental Findings Committee white paper (J Am Danial Radiol 2015): In patients aged 35 years and older with an incidental thyroid nodule equal to or greater than 1.[address], MRI or extrathyroidal US, further evaluation with dedicated thyroid US is recommended for patients with normal life expectancy and without comorbidities. For smaller nodules without suspicious features, no further evaluation or follow up is recommended. REFERENCES: NASCET CRITERIA. The degree of stenosis in the cervical segment of the internal carotid artery is based on NASCET criteria. Normal is no stenosis. Mild is less than 50% stenosis. Moderate is 50-69% stenosis. Severe is 70% to 99% stenosis. Total occlusion is no detectable patent lumen. ADDENDUM: 06/08/242126 Findings were discussed with UMESH Elias at 06/08/2024 9:22 PM CDT. Head MRI 06/09/24 04:35 IMPRESSION: 1. 6.8 mm focus of restricted diffusion compatible with acute ischemia in the LEFT lateral thalamus/posterior limb LEFT internal capsule. Small amount of associated edema. No other foci of restricted diffusion. Notified Colette Olivo MD at 06/09/2024 11:10 AM. Laboratory Results WBC 4.56 10^3/uL (3.29-11.43) 06/10/24 04:57 RBC 4.28 10^6/uL (3.85-5.65) 06/10/24 04:57 Hgb 12.30 g/dL (11.27-16.99) 06/10/24 04:57 Hct 38.4 % (36-47) 06/10/24 04:57 MCV 89.7 fl (85-98) 06/10/24 04:57 MCH 28.7 pg (27-33) 06/10/24 04:57 MCHC 32.0 g/dL (30-55) 06/10/24 04:57 RDW 13.2 % (12.1-15.1) 06/10/24 04:57 Plt Count 146 10^3/cmm (157-399) L 06/10/24 04:57 MPV 11.0 fL (7.4-10.4) H 06/10/24 04:57 Neut % (Auto) 60.0 % 06/10/24 04:57 Lymph % (Auto) 27.9 % 06/10/24 04:57 Divide % (Auto) 7.7 % 06/10/24 04:57 Eos % (Auto) 3.5 % 06/10/24 04:57 Baso % (Auto) 0.7 % 06/10/24 04:57 Neut # (Auto) 2.74 10^3/uL (1.8-7.7) 06/10/24 04:57 Lymph # (Auto) 1.3 10^3/uL (0.8-4.8) 06/10/24 04:57 Divide # (Auto) 0.4 10^3/uL (0.2-0.9) 06/10/24 04:57 Eos # (Auto) 0.2 10^3/uL (0.0-0.8) 06/10/24 04:57 Baso # (Auto) 0.0 10^3/uL (0.0-0.1) 06/10/24 04:57 Nucleated RBC % (auto) 0 % 06/10/24 04:57 Nucleated RBCs # 0.0 /100WBC 06/10/24 04:57 PT 12.20 SECONDS (12.1-14.9) 06/08/24 20:50 INR 0.85 (0.8-1.2) 06/08/24 20:50 APTT 28.7 SECONDS (23.9-36.7) 06/08/24 20:50 D-Dimer 0.42 ug/mLFEU (0-0.59) 06/08/24 20:50 Sodium 137 mmol/L (136-145) 06/10/24 04:57 Potassium 3.8 mmol/L (3.5-5.1) 06/10/24 04:57 Chloride 104 mmol/L (98-107) 06/10/24 04:57 Carbon Dioxide 24 mmol/L (22-29) 06/10/24 04:57 Anion Gap 12.8 (5-19) 06/10/24 04:57 BUN 15 mg/dL (8-23) 06/10/24 04:57 Creatinine 0.7 mg/dL (0.5-0.9) 06/10/24 04:57 GFR Calculation 84.2 mL/min (90-130) L 06/10/24 04:57 Glucose 217 mg/dL (65-115) H 06/10/24 04:57 POC Glucose 249 mg/dL (70-110) H 06/10/24 06:27 Estimat Average Glucose 232 06/08/24 20:50 Hemoglobin A1c 9.7 % (4.0-6.0) H 06/08/24 20:50 Calculated Osmolality 291 mOsm/kg (285-295) 06/10/24 04:57 Calcium 8.6 mg/dL (8.5-10.5) 06/10/24 04:57 Magnesium 1.6 mg/dL (1.7-2.3) L 06/09/24 02:29 Iron 38 ug/dL (37-145) 06/08/24 20:50 TIBC 290 mcg/dl 06/08/24 20:50 % Saturation 13.1 % (20-50) L 06/08/24 20:50 Unsat Iron Binding 252 ug/dL (112-347) 06/08/24 20:50 Ferritin 41 ng/mL (15-150) 06/08/24 20:50 Total Bilirubin 0.5 mg/dL (0.15-1.2) 06/08/24 20:50 AST 25 U/L (0-32) 06/08/24 20:50 ALT 22 U/L (0-33) 06/08/24 20:50 Alkaline Phosphatase 115 U/L (35-105) H 06/08/24 20:50 Troponin T Baseline 13 ng/L (0-10) H 06/09/24 00:29 Troponin T 120 Minute 13.85 ng/L (0-10) H 06/09/24 02:29 Delta Troponin T 0.85 ABS# (0-10) 06/09/24 02:29 Troponin T Hi Sens 6Hr 12.60 ng/L (0-10) H 06/09/24 06:35 Troponin T Hi Sens 6Hr Delta -0.40 ng/L (0-12) L 06/09/24 06:35 C-Reactive Protein 3.3 mg/L (0.0-4.9) 06/09/24 02:29 Total Protein 7.3 g/dL (6.6-8.7) 06/08/24 20:50 Albumin 4.0 g/dL (3.5-5.2) 06/08/24 20:50 Globulin 3.3 g/dL (1.3-4.6) 06/08/24 20:50 Triglycerides 181 mg/dL (0-150) H 06/08/24 20:50 Cholesterol 198 mg/dL (0-200) 06/08/24 20:50 LDL Cholesterol, Calc 113 mg/dL (50-129) 06/08/24 20:50 HDL Cholesterol 49 mg/dL (60-100) L 06/08/24 20:50 LDL/HDL Ratio 2.31 RATIO (0.00-3.22) 06/08/24 20:50 Cholesterol/HDL Ratio 4.04 mg/dL (0.0-4.40) 06/08/24 20:50 Vitamin B12 194 pg/mL (232-1245) L 06/08/24 20: Vitamin B12 Cancelled 06/08/24 20:50 Folate > 20.0 ng/mL (4.8-37.3) 06/08/24 20:50 TSH 5.07 uIU/mL (0.27-4.20) H 06/08/24 20:50 Urine Color Yellow (Yellow) 06/08/24 21:54 Urine Appearance Clear (CLEAR) 06/08/24 21:54 Urine pH 7.5 (5-7) 06/08/24 21:54 Ur Specific [place] 1.028 (1.005-1.030) 06/08/24 21:54 Urine Protein 1+ (Negative) A 06/08/24 21:54 Urine Glucose (UA) 2+ (Normal) H 06/08/24 21:54 Urine Ketones Negative (Negative) 06/08/24 21:54 Urine Blood Trace (Negative) A 06/08/24 21:54 Urine Nitrate Negative (Negative) 06/08/24 21:54 Urine Bilirubin Negative (Negative) 06/08/24 21:54 Urine Urobilinogen 0.2 mg/dL (Negative) 06/08/24 21:54 Ur Leukocyte Esterase Negative (Negative) 06/08/24 21:54 Urine RBC 3-5 /hpf (0-2) 06/08/24 21:54 Urine WBC 0-5 /hpf (0-5) 06/08/24 21:54 Ur Squamous Epith Cells 0-5 /hpf (0-5) 06/08/24 21:54 Amorphous Sediment Not Reportable 06/08/24 21:54 Urine Bacteria None seen /hpf (NONE) 06/08/24 21:54 Hyaline Casts 0.40 /lpf 06/08/24 21:54 Urine Opiates Screen Negative ng/mL (Negative) 06/08/24 21:54 Ur Barbiturates Screen Negative ng/mL (Negative) 06/08/24 21:54 Ur Phencyclidine Scrn Negative ng/mL (Negative) 06/08/24 21:54 Ur Amphetamines Screen Negative ng/mL (Negative) 06/08/24 21:54 U Benzodiazepines Scrn Negative ng/mL (Negative) 06/08/24 21:54 Urine Cocaine Screen Negative ng/mL (Negative) 06/08/24 21:54 U Marijuana (THC) Screen Negative ng/mL (Negative) 06/08/24 21:54 Ethyl Alcohol < 10 mg/dL (0-10) 06/08/24 20:50 Influenza A (PCR) Negative (Negative) 06/08/24 21:54 Influenza Type B (PCR) Negative (Negative) 06/08/24 21:54 RSV (PCR) Negative (Negative) 06/08/24 21:54 SARS-CoV-2 (PCR) Negative (Negative) 06/08/24 21:54 Vitals Last Vital Signs Temp 98.6 F 06/10/24 11:51 Pulse 69 06/10/24 11:51 Resp 15 06/10/24 11:51 BP 169/83 06/10/24 11:51 Pulse Ox 96 06/10/24 11:51 O2 Del Method Room Air 06/10/24 11:51 Discharge Plan Discharge Patient Disposition: Home Condition: Stable Prescriptions: New atorvastatin 40 mg Tablet 80 mg PO DAILY Qty: 60 0RF insulin glargine [Lantus U-100 Insulin] 100 unit/mL Solution 20 unit SUBCUT BEDTIME Qty: 3 0RF clopidogrel 75 mg Tablet 75 mg PO DAILY 21 Days Qty: 21 0RF aspirin 81 mg Tablet,Delayed Release (Dr/Ec) 81 mg PO DAILY Qty: 30 1RF (DME) blood-glucose meter,continuous Misc See Rx Instructions .Route Qty: 1 0RF Rx Instructions: As directed (DME) blood-glucose sensor Device See Rx Instructions .Route Qty: 1 0RF Rx Instructions: As directed amlodipine 10 mg tablet 10 mg PO DAILY Qty: 30 0RF Continued levothyroxine 88 mcg capsule 88 mcg PO DAILY metoprolol tartrate 50 mg tablet 50 mg PO BID losartan 50 mg tablet 50 mg PO DAILY Qty: 30 0RF metformin 1,000 mg tablet 1,000 mg PO BID Qty: 120 1RF famotidine 20 mg Tablet 20 mg PO BID apple cider vinegar 250 mg Tablet,Chewable 250 mg PO DAILY Discontinued glipizide 5 mg tablet 5 mg PO BID Discharge Orders: Discharge Order (Routine); Ordered 06/10/24 Ordered By: Colette Olivo Other Ambulatory Orders: Physical Therapy Eval and Treat Outpatient (Order) Timeframe: 2 Weeks Facility: [facility] - Location: Physical Therapy Ordered By: Colette Olivo Sestamibi Stress Test Request (Routine) Timeframe: 1 Day Facility: [facility] - Location: Cardiac Diagnostic Laboratory Ordered By: Colette Olivo Referrals: Lakshmi Strong MD [Physician] - 06/19/24 8:30 am Discharge Diet: Cardiac and Diabetic Discharge Activity: As per PT/OT instructions Patient Instructions: Type 2 Diabetes, Aspirin (By mouth), Amlodipine (By mouth), Atorvastatin (By mouth), Clopidogrel (By mouth), Insulin Glargine (By injection), Angina (DC), Hypertension (DC), Stroke (DC), Opioid Safety Discharge Attestations Time Spent in Discharge Care*: greater than 30 min Quality Metrics Clinical Quality Measures [ No reported AMI, CVA or VTE this stay] Coding Level of Care Code 34904 Total time (in minutes) for Discharge: 35 Diagnoses Hypertension I10 Poorly controlled diabetes mellitus E11.65 CVA (cerebral vascular accident) I63.89 CVA mechanism: other Balance problem R26.89 Chest pain R07.9
[2024-06-10 12:40] LABS: Glucose Point of Care 297 mg/dL (70-110)
== END 2024-06-10 13:50 | disposition home or self-care (01) ==
LOC: ER 22:23 → MEDSURG 23:38
PROVIDERS: Admitting Provider Internal Medicine; Emergency Provider Emergency Medicine; Visit Provider Internal Medicine
DX: I63.89 Other cerebral infarction (principal); R29.701 NIHSS score 1; I10 Essential (primary) hypertension; E11.65 Type 2 diabetes mellitus with hyperglycemia; R26.89 Other abnormalities of gait and mobility; R07.9 Chest pain, unspecified; G25.81 Restless legs syndrome; Z82.49 Family history of ischemic heart disease and other diseases of the circulatory system; D69.6 Thrombocytopenia, unspecified; Z79.84 Long term (current) use of oral hypoglycemic drugs
CPT/HCPCS: 36415; 36416; 70450; 70496; 70498; 70551; 80048; 80053; 80061; 80306; 80307; 81001; 82607; 82728; 82746; 82962; 83036; 83540; 83550; 83735; 84443; 84484; 85025; 85378; 85610; 85730; 86140; 87637; 93005; 93306; 96365; 96366; 96372; 96375; 97110; 97116; 97161; 97165; 99285; G0378; J1644; J1815; J2060; J2405; J3420; J3475; J3490; J7030; J9999

== ENCOUNTER → 2024-10-02 09:29 | Outpatient (BNVA) | payer OTHER, SELFPAY | PROVIDERS: PCP Family Medicine; Visit Provider Family Medicine | DX: E11.9 Type 2 diabetes mellitus without complications (principal); E03.9 Hypothyroidism, unspecified; E53.8 Deficiency of other specified B group vitamins | CPT/HCPCS: 82043; 82607; 83036; 84439; 84443; 84481 ==

== ENCOUNTER → 2025-01-19 16:20 | Outpatient (BNVA) | payer OTHER, SELFPAY | PROVIDERS: PCP Family Medicine; Visit Provider Family Medicine | DX: E11.65 Type 2 diabetes mellitus with hyperglycemia (principal) | CPT/HCPCS: 83036; 84439; 84443 ==